=== PATIENT | male | born 1965 | race American Indian/Alaskan Native ===

== ENCOUNTER 2020-02-25 09:34 | Emergency (ER) | payer MEDICAID ==
[2020-02-25 09:46] VITALS: BP 181/96
== END 2020-02-25 13:50 | disposition left against medical advice (07) ==
LOC: ED 09:34
DX: L02.211 Cutaneous abscess of abdominal wall (principal); Z53.21 Procedure and treatment not carried out due to patient leaving prior to being seen by health care provider

== ENCOUNTER 2020-05-10 20:52 | Emergency (ER) | payer MEDICAID ==
[~2020-05-10 20:52] MED LIST: oxyCODONE /ACETAMINOPHEN 5-325MG TAB PO ONE
--- NOTE | 2020-05-10 20:52 | Emergency Department Report ---
ED Lower Extremity HPI - General Chief Complaint: Extremity Injury, Lower Stated Complaint: INJ RT ANKLE Source: patient Mode of arrival: Ambulatory Limitations: No Limitations - History of Present Illness Initial Comments: 54-year-old -[place] male presents to the emergency room for right ankle pain at the Achilles area. Patient states he went to walk on a slipped on a wet ground and heard a pop and felt a pop to his right Achilles. Patient reports his pain is a 10 out of 10. Patient reports is very difficult for him to bear weight. He has a past medical history of hypertension MD Complaint: ankle injury -: This afternoon Injury: Ankle: Right Severity scale (0 -10): 10 Improves With: immobilization Worsens With: weight bearing, movement, palpation Context: walking Associated Symptoms: snap/pop sensation, unable to bear weight - Related Data Previous Rx's Medication Instructions Recorded Last Taken Type Ibuprofen [Motrin 800 MG tab] 800 mg PO Q8HR PRN #30 tablet 05/10/20 Unknown Rx oxyCODONE /ACETAMINOPHEN [Percocet 1 tab PO Q6HR PRN #12 tablet 05/10/20 Unknown Rx 5/325 mg] Allergies Allergy/AdvReac Type Severity Reaction Status Date / Time No Known Allergies Allergy Unverified 02/25/20 09:43 ED Review of Systems ROS: Stated complaint: INJ RT ANKLE Other details as noted in HPI Comment: All other systems reviewed and negative ED Past Medical Hx - Past Medical History Hx Hypertension: Yes - Medications Home Medications: Home Medications Medication Instructions Recorded Confirmed Last Taken Type Ibuprofen [Motrin 800 MG tab] 800 mg PO Q8HR PRN #30 tablet 05/10/20 Unknown Rx oxyCODONE /ACETAMINOPHEN [Percocet 1 tab PO Q6HR PRN #12 tablet 05/10/20 Unknown Rx 5/325 mg] ED Physical Exam - General Limitations: No Limitations General appearance: alert, in no apparent distress - Head Head exam: Present: atraumatic, normocephalic - Eye Eye exam: Present: normal appearance - ENT ENT exam: Present: mucous membranes moist - Neck Neck exam: Present: normal inspection, full ROM - Respiratory Respiratory exam: Present: accessory muscle use - Expanded Lower Extremity Exam Right Ankle exam: Present: tenderness, swelling. Absent: full ROM, deformity Foot/Toe exam: Present: normal inspection Neuro vascular tendon exam: Present: no vascular compromise - Back Exam Back exam: Present: normal inspection - Neurological Exam Neurological exam: Present: alert, oriented X3 - Psychiatric Psychiatric exam: Present: normal affect, normal mood - Skin Skin exam: Present: warm, dry, intact, normal color. Absent: rash ED Course Vital Signs 05/10/20 05/10/20 18:25 20:27 Temperature 97.9 F Pulse Rate 78 Respiratory 20 18 Rate Blood Pressure 174/94 O2 Sat by Pulse 95 Oximetry - Orthopedic Splinting/Casting Injury #1 Side: right Lower Extremity Injury Location: ankle (right) Lower Extremity Immobilizer: posterior splint Other Orthopedic Equipment: crutches Additional Comments: Pre and post pulses are intact. Splint was completed by me and Dr. Dallas. ED Lower Extremity MDM - Radiology Data Radiology results: report reviewed [facility] [address] [place] [address] XRay Report Signed Patient: JAC STOREY MR#: [id number] : 1965 Acct:[id number] Age/Sex: 54 / M ADM Date: 05/10/20 Loc: ED Attending Dr: Ordering Physician: AUDREY HOLM Date of Service: 05/10/20 Procedure(s): XR ankle 2V RT Accession Number(s): [id number] cc: AUDREY HOLM Fluoro Time In Minutes: . XR ankle 2V RT INDICATION / CLINICAL INFORMATION: Right ankle pain at the Achilles. COMPARISON: None available. FINDINGS/IMPRESSION: There is a ossific fragment near the distal portion of the Achilles tendon approximately 2.7 cm above the calcaneus. No definite donor site is visualized from the calcaneus. However, findings are concerning for an avulsion fracture of the calcaneal tuberosity. Signer Name: Panfilo Devine MD Signed: 05/10/2020 9:18 PM Workstation Name: [id number] Transcribed By: TRACEY Dictated By: Panfilo Devine MD Electronically Authenticated By: Panfilo Devine MD Signed Date/Time: 05/10/202117 DD/ 13 TD/TT: Critical care attestation.: If time is entered above; I have spent that time in minutes in the direct care of this critically ill patient, excluding procedure time. ED Disposition Clinical Impression: Injury of right Achilles tendon Disposition: DC-01 TO HOME OR SELFCARE Is pt being admited?: No Does the pt Need Aspirin: No Condition: Stable Instructions: Achilles Tendon Tear Additional Instructions: X-ray is concerning for avulsion fracture. I am concerned that she may have Achilles tear. You need to wear your splint no weightbearing use your crutches follow-up with orthopedic provider in the next 3 to 5 days. Take pain medication as needed do not operate heavy machinery while taking pain medication. Be sure to increase your fluid intake. Prescriptions: Ibuprofen [Motrin 800 MG tab] 800 mg PO Q8HR PRN #30 tablet PRN Reason: Pain , Severe (7-10) oxyCODONE /ACETAMINOPHEN [Percocet 5/325 mg] 1 tab PO Q6HR PRN #12 tablet PRN Reason: Pain , Severe (7-10) Referrals: PRIMARY MD LEYLA [Primary Care Provider] - 3-5 Days BELIA MOYER MD [Staff Physician] - 3-5 Days Forms: Work/School Release Form(ED)
--- NOTE | 2020-05-10 21:22 | XRay Report ---
. XR ankle 2V RT INDICATION / CLINICAL INFORMATION: Right ankle pain at the Achilles. COMPARISON: None available. FINDINGS/IMPRESSION: There is a ossific fragment near the distal portion of the Achilles tendon approximately 2.7 cm above the calcaneus. No definite donor site is visualized from the calcaneus. However, findings are concer an[place]ia for an avulsion fracture of the calcaneal tuberosity. Signer Name: Panfilo Devine MD Signed: 05/10/2020 9:18 PM Workstation Name: [id number]
[2020-05-10 23:08] VITALS: BP 201/96
== END 2020-05-10 23:08 | disposition home or self-care (01) ==
LOC: ED 23:07
DX: S86.001A Unspecified injury of right Achilles tendon, initial encounter (principal); I10 Essential (primary) hypertension; Z79.1 Long term (current) use of non-steroidal anti-inflammatories (NSAID); Z79.899 Other long term (current) drug therapy; W01.0XXA Fall on same level from slipping, tripping and stumbling without subsequent striking against object, initial encounter; Y93.89 Activity, other specified; Y92.89 Other specified places as the place of occurrence of the external cause; Y99.8 Other external cause status